=== PATIENT | female | born 2000 | race Caucasian/White ===

== ENCOUNTER 2022-03-08 06:48 | Day surgery (SDC) | payer BC ==
[2022-03-06 16:13] VITALS: BMI 23.7
[~2022-03-08 06:48] MED LIST: DEXAMETHASONE SOD PHOSPHATE 4 MG/ML 1 ML VIAL IV PRN; FAMOTIDINE 20 MG/2 ML VIAL IV PRN; ONDANSETRON 4 MG/2 ML VIAL IVP PRN
[2022-03-08] MEDS ORDERED: SCOPOLAMINE 1 MG/72 HR PATCH TRANSDERM ONE (06:56)
[2022-03-08] MEDS ORDERED: DEXAMETHASONE SOD PHOSPHATE 4 MG/ML 1 ML VIAL IV ONE (06:56)
[2022-03-08] MEDS ORDERED: LIDOCAINE 1% (10MG/ML) FOR IV START INTRADERMA PRN (06:56)
[2022-03-08] MEDS ORDERED: LACTATED RINGERS 1,000 ML IV SCH (06:56)
[2022-03-08] MEDS ORDERED: HYDROmorphone 0.5 MG/0.5 ML SYRINGE IVP PRN (07:00)
[2022-03-08 07:30] VITALS: RESP 16
[2022-03-08] MEDS ORDERED: LIDOCAINE 4% LTA KIT (4 ML) TOPICAL ONE (08:50)
[2022-03-08] MEDS ORDERED: PROPOFOL 10 MG/ML 20 ML VIAL IV ONE (08:50)
[2022-03-08] MEDS ORDERED: MIDAZOLAM 2 MG/2 ML VIAL ONE (08:50)
[2022-03-08] MEDS ORDERED: SUCCINYLCHOLINE CHLORIDE 100 MG/5 ML SYR IV ONE (08:50)
[2022-03-08] MEDS ORDERED: fentaNYL (PF) 50 MCG/ML 2 ML AMP ONE (08:50)
[2022-03-08] MEDS ORDERED: LIDOCAINE 2% INJ 20 MG/ML (2 ML VIAL) ONE (08:50)
[2022-03-08] MEDS ORDERED: LACTATED RINGERS 1,000 ML IV ONE ×2 (09:27)
--- NOTE | 2022-03-08 09:57 | P.OP ---
Date of Procedure: 03/08/22 Preoperative Diagnosis: Chronic tonsillitis Postoperative Diagnosis: Same Procedure(s) Performed: Adenotonsillectomyadenoids cauterization Anesthesia: LEONAA Surgeon: Tato Renee Estimated Blood Loss (ml): 3 Pathology: other (Tonsils) Condition: stable Disposition: PACU Indications for Procedure: This is a 21-year-old white female whose had difficulties with chronic and recurrent tonsillitis as well as tonsillar cryptitis Operative Findings: Tonsils +3.5 bilaterally with mild acute inflammation and are cryptic was sulfur granules in the crypts, adenoids mildly enlarged Description of Procedure: PROCEDURE: The patient was brought into the operative suite and placed in the supine position. The patient underwent induction of general anesthesia with oral endotracheal intubation without difficulty. The table was turned 90 degrees and the patient was positioned with a shoulder roll and head donut. The patient was prepped and draped in the usual aseptic fashion. The McIvor mouth gag was placed. The soft palate was palpated. No submucous cleft was noted. Red rubber Santana catheters were placed through both nasal cavities and pulled through the oropharynx for soft palate retraction. The nasopharynx was examined with a mirror examiner and the adenoids were vaporized/cauterized with suction cautery. This ablated the adenoids and there was good hemostasis noted. The red rubber Santana catheters were removed. The left tonsil was then grasped with a curved Allis clamp and dissected from the tonsillar fossa in a superior to inferior direction using both blunt and electrocautery dissection until the tonsils was removed. Once the tonsils were removed, hemostasis was gained with suction cautery. Attention was then turned to the right where the right tonsil was removed exactly as the left had been. Once hemostasis was obtained and remained good in both tonsillar fossa as well as the nasopharynx, the patient was suctioned in an orogastric fashion and the McIvor mouth gag was removed. Note that there was more oozing than usual although well controlled at the end due to the acute inflammation The patient was then allowed to emerge from general anesthesia, having tolerated the procedure well. The patient was extubated in the operative suite and transferred to the postoperative recovery area in satisfactory condition.
[2022-03-08 10:18] VITALS: TEMP 97.7
[2022-03-08] MEDS ORDERED: HYDROcodone/APAP 5-325MG 1 EACH TAB PO ONE (11:23)
[2022-03-08] MEDS ORDERED: HYDROcodone/APAP 5-325MG 1 EACH TAB ONE (11:25)
[2022-03-08 11:53] VITALS: BP 121/79; PULSE 58
== END 2022-03-08 12:15 | disposition home or self-care (01) ==
LOC: OR 06:48
PROVIDERS: ATTEND Otolaryngology
DX: J03.80 Acute tonsillitis due to other specified organisms (principal); J35.01 Chronic tonsillitis; Z82.61 Family history of arthritis; Z81.1 Family history of alcohol abuse and dependence; Z83.52 Family history of ear disorders; Z72.0 Tobacco use; Z79.52 Long term (current) use of systemic steroids; J30.9 Allergic rhinitis, unspecified
CPT/HCPCS: 81025; 88304; 42821; J2250; J1100; J0690; J2405; J3010; J0330; J2704; J1170; J2001